=== PATIENT | female | born 1975 | race African-American/Black ===

== ENCOUNTER → 2020-07-31 | Outpatient (CLI) | payer OTHER ==
--- NOTE | 2020-08-01 01:43 | Diagnostic Imaging Report ---
EXAM: CT Abdomen and Pelvis Without Intravenous Contrast CLINICAL HISTORY: PAIN TECHNIQUE: Axial computed tomography images of the abdomen and pelvis without intravenous contrast. CTDI is 3.20 mGy and DLP is 144.80 mGy-cm. One or more of the following dose reduction techniques were used: automated exposure control, adjustment of the mA and/or kV according to patient size, use of iterative reconstruction technique. COMPARISON: No relevant prior studies available. FINDINGS: Evaluation of the soft tissue and vasculature is limited on this noncontrast exam. Lung bases: Ground-glass airspace opacities are identified within the periphery of the visualized bilateral lower lungs (3: 12, anders images). ABDOMEN: Liver: 10 mm left hepatic lobe cyst (3: 21). Gallbladder: No calcified gallstones identified. Hyperdense material identified layering within the gallbladder lumen, either pancreas excretion of intravenous contrast versus sludge. Pancreas: Unremarkable, within the confines of this noncontrast exam. Spleen: Unremarkable. No splenomegaly. Adrenals: Unremarkable. No mass. Kidneys and ureters: 3 mm upper pole right renal stone (7: 32). No hydronephrosis or hydroureter. No definite obstructing urolithiasis. Bilateral renal cysts. Trace bilateral nonspecific perinephric inflammatory changes are identified (3: 66). Stomach and bowel: Unremarkable. No obstruction. No mucosal thickening. PELVIS: Appendix: The appendix is normal (3: 97). Bladder: Unremarkable. No stones. Reproductive: Unremarkable within the confines of this noncontrast exam. ABDOMEN and PELVIS: Intraperitoneal space: Punctate pelvic phleboliths are identified. No free air. No significant fluid collection. Bones/joints: L4-L5 and L5-S1 degenerative disc disease. Soft tissues: Bilateral gluteal and flank subcutaneous injection granulomas. Vasculature: Unremarkable. No abdominal aortic aneurysm. Lymph nodes: Unremarkable. No enlarged lymph nodes. IMPRESSION: 1. Mild perinephric inflammatory changes, nonspecific but correlate for pyelonephritis. No hydronephrosis. 3 mm nonobstructing right upper pole renal stone. 2. Ground-glass airspace opacities identified within the periphery of the visualized lower lungs. Correlate for COVID infection.
== END | disposition home or self-care (01) ==
LOC: CAT 23:16
DX: R10.9 Unspecified abdominal pain (principal); N20.0 Calculus of kidney; M51.37 Other intervertebral disc degeneration, lumbosacral region
CPT/HCPCS: 74176